=== PATIENT | male | born 1990 | race Hispanic/Latino ===

== ENCOUNTER 2017-09-22 10:41 | Emergency (ER) | payer BC, OTHER ==
[2017-09-22 11:03] LABS: BASOPHILS % (AUTO) 0.7 % (0.0-5.0); EOSINOPHILS % (AUTO) 2.5 % (0.0-8.0); HEMATOCRIT 44.7 % (42-54); MEAN CORPUSCULAR HEMOGLOBIN 29.8 pg (27.0-33.0); MEAN CORPUSCULAR HGB CONC 34.4 g/dL (32.0-36.0); MEAN CORPUSCULAR VOLUME 86.4 fL (79-99); MONOCYTES % (AUTO) 6.9 % (3.0-13.0); NEUTROPHILS % (AUTO) 69.9 % (40.0-77.0); PLATELET COUNT (AUTO) 318 K/uL (130-400); RED BLOOD CELL COUNT(AUTO) 5.18 MIL/uL (4.50-6.20); RED CELL DISTRIBUTION WIDTH 13.3 % (11.0-15.5)
[2017-09-22 11:11] LABS: CREATININE 0.8 mg/dL (0.5-1.5); POTASSIUM 3.8 mmol/L (3.5-5.1)
[2017-09-22 11:20] LABS: ALBUMIN 3.8 g/dL (3.5-5.0); BILIRUBIN,TOTAL 0.5 mg/dL (0.2-1.0); TOTAL PROTEIN, SERUM 7.4 g/dL (6.0-8.3)
[2017-09-22] MEDS ORDERED: PREDNISONE 20 MG TABLET ONE (11:51)
[2017-09-22] MEDS ORDERED: KETOROLAC TROMETHAMINE 30MG/ML ONE (11:52)
== END 2017-09-22 12:04 | disposition home or self-care (01) ==
LOC: EDH 10:41
DX: R07.89 Other chest pain (principal); I10 Essential (primary) hypertension; Z87.891 Personal history of nicotine dependence
CPT/HCPCS: 36415; 71045; 80053; 84484; 85025; 93005; 96374; 99285; J1885

== ENCOUNTER 2017-10-18 20:58 | Emergency (ER) | payer SELFPAY ==
[2017-10-18 21:47] LABS: BASOPHILS % (AUTO) 1.1 % (0.0-5.0); EOSINOPHILS % (AUTO) 2.7 % (0.0-8.0); HEMATOCRIT 44.5 % (42-54); LYMPHOCYTES % (AUTO) 20.2 % (21.0-51.0); MEAN CORPUSCULAR HEMOGLOBIN 29.2 pg (27.0-33.0); MEAN CORPUSCULAR HGB CONC 33.8 g/dL (32.0-36.0); MEAN CORPUSCULAR VOLUME 86.5 fL (79-99); MONOCYTES % (AUTO) 6.6 % (3.0-13.0); NEUTROPHILS % (AUTO) 69.4 % (40.0-77.0); NUCLEATED RED BLOOD CELLS 0.1 % (0.0-0.19); PLATELET COUNT (AUTO) 329 K/uL (130-400); RED BLOOD CELL COUNT(AUTO) 5.14 MIL/uL (4.50-6.20); RED CELL DISTRIBUTION WIDTH 13.1 % (11.0-15.5)
[2017-10-18 22:01] LABS: POTASSIUM 3.6 mmol/L (3.5-5.1)
[2017-10-18 22:06] LABS: ALBUMIN 3.8 g/dL (3.5-5.0); BILIRUBIN,TOTAL 0.5 mg/dL (0.2-1.0); TOTAL PROTEIN, SERUM 7.5 g/dL (6.0-8.3)
== END 2017-10-19 01:38 | disposition home or self-care (01) ==
LOC: EDH 20:58
DX: R42 Dizziness and giddiness (principal); R06.00 Dyspnea, unspecified; I10 Essential (primary) hypertension; F12.10 Cannabis abuse, uncomplicated; Z72.0 Tobacco use
CPT/HCPCS: 36415; 70450; 71250; 80053; 83880; 84484; 85025

== ENCOUNTER 2018-07-07 20:59 | Emergency (ER) | payer OTHER | END 2018-07-07 21:57 | disposition home or self-care (01) | LOC: EDH 20:59 | DX: S83.91XA Sprain of unspecified site of right knee, initial encounter (principal); I10 Essential (primary) hypertension; Z98.890 Other specified postprocedural states; Z72.0 Tobacco use; W06.XXXA Fall from bed, initial encounter; Y93.89 Activity, other specified; Y92.009 Unspecified place in unspecified non-institutional (private) residence as the place of occurrence of the external cause; Y99.8 Other external cause status | CPT/HCPCS: 73562 ==

== ENCOUNTER 2018-08-16 09:59 | Emergency (ER) | payer OTHER ==
[2018-08-16] MEDS ORDERED: SODIUM CHLORIDE 0.9% 1000ML 2,000 ML IV ONE (10:11)
[2018-08-16] MEDS ORDERED: ONDANSETRON HCL 4 MG/2 ML VIAL ONE (10:11)
[2018-08-16] MEDS ORDERED: HYOSCYAMINE SULFATE 0.125 MG TAB.SUBL SL ONE (10:11)
[2018-08-16 10:38] LABS: BASOPHILS % (AUTO) 0.4 % (0.0-5.0); HEMATOCRIT 47.4 % (42-54); LYMPHOCYTES % (AUTO) 15.6 % (21.0-51.0); MEAN CORPUSCULAR HEMOGLOBIN 29.1 pg (27.0-33.0); MEAN CORPUSCULAR HGB CONC 33.7 g/dL (32.0-36.0); MEAN CORPUSCULAR VOLUME 86.3 fL (79-99); MONOCYTES % (AUTO) 7.5 % (3.0-13.0); NEUTROPHILS % (AUTO) 74.5 % (40.0-77.0); NUCLEATED RED BLOOD CELLS 0.1 % (0.0-0.19); PLATELET COUNT (AUTO) 326 K/uL (130-400); RED CELL DISTRIBUTION WIDTH 13.3 % (11.0-15.5); WHITE BLOOD COUNT (AUTO) 12.2 K/uL (4.8-10.8)
[2018-08-16 10:43] LABS: AMYLASE 32 U/L (25-115); LIPASE 75 U/L (114-286)
[2018-08-16 10:44] LABS: POTASSIUM 3.4 mmol/L (3.5-5.1)
[2018-08-16 10:49] LABS: ALBUMIN 3.6 g/dL (3.5-5.0); BILIRUBIN,TOTAL 0.6 mg/dL (0.2-1.0); TOTAL PROTEIN, SERUM 7.3 g/dL (6.0-8.3)
[2018-08-16] MEDS ORDERED: CEFTRIAXONE SODIUM 1 GM ONE (11:40)
[2018-08-16] MEDS ORDERED: SODIUM CHLORIDE 0.9% 50 ML IV ONE (11:40)
== END 2018-08-16 12:30 | disposition home or self-care (01) ==
LOC: EDH 09:59
DX: K52.9 Noninfective gastroenteritis and colitis, unspecified (principal); E86.0 Dehydration; I10 Essential (primary) hypertension; Z98.890 Other specified postprocedural states
CPT/HCPCS: 36415; 80053; 82150; 83690; 85025; 87804 ×2; 96361; 96374; 96375; 99283; J0696; J2405; J7030

== ENCOUNTER 2020-01-20 18:11 | Emergency (ER) | payer OTHER ==
[2020-01-20] MEDS ORDERED: DICYCLOMINE HCL 10 MG/ML 2ML AMP IM ONE (19:27)
[2020-01-20] MEDS ORDERED: ONDANSETRON ODT 4 MG TAB ONE (19:27)
== END 2020-01-20 20:57 | disposition home or self-care (01) ==
LOC: EDH 18:11
DX: R11.10 Vomiting, unspecified (principal); R10.84 Generalized abdominal pain; I10 Essential (primary) hypertension; Z90.49 Acquired absence of other specified parts of digestive tract; Z72.0 Tobacco use
CPT/HCPCS: 36415; 80053; 83690; 85025; 96372; 99283; J0500

== ENCOUNTER 2022-11-22 13:58 | Emergency (ER) | payer BC, OTHER ==
[~2022-11-22] VITALS: Ht 172.7 cm; Wt 113.4 kg
[2022-11-22] MEDS ORDERED: ONDANSETRON 4MG INJ IVP ONE (15:00)
[2022-11-22] MEDS ORDERED: 0.9%NACL 1000ML 1,000 ML IV ONE ×2 (15:00→16:00)
[2022-11-22 15:04] LABS: ABG OXYGEN SATURATION 75.8 % (95.0-99.0); BASE EXCESS,VENOUS BLOOD GAS 0.2 (-2.0-3.0); HCO3,VENOUS BLOOD GAS 26.3 (21.0-28.0); PCO2,VENOUS BLOOD GAS 48 (35-48)
[2022-11-22 15:34] LABS: BASOPHILS % (AUTO) 0.7 % (0.0-5.0); EOSINOPHILS % (AUTO) 1.1 % (0.0-8.0); HEMATOCRIT 46.2 % (42-54); LYMPHOCYTES % (AUTO) 19.8 % (21.0-51.0); MEAN CORPUSCULAR HEMOGLOBIN 28.2 pg (27.0-33.0); MEAN CORPUSCULAR HGB CONC 33.5 g/dL (32.0-36.0); MONOCYTES % (AUTO) 7.1 % (3.0-13.0); NEUTROPHILS % (AUTO) 70.3 % (40.0-77.0); PLATELET COUNT (AUTO) 297 K/uL (130-400); RED CELL DISTRIBUTION WIDTH 12.3 % (11.0-15.5); WHITE BLOOD COUNT (AUTO) 10.6 K/uL (4.8-10.8)
[2022-11-22 15:45] LABS: CREATININE 0.9 mg/dL (0.5-1.5); POTASSIUM 3.4 mmol/L (3.5-5.1)
[2022-11-22 15:50] LABS: ALBUMIN 3.4 g/dL (3.5-5.0); TOTAL PROTEIN, SERUM 6.7 g/dL (6.0-8.3)
[2022-11-22 16:51] LABS: AMPHET/METH SCREEN,URINE NEGATIVE (NEGATIVE); BARBITURATE SCREEN, URINE NEGATIVE (NEGATIVE); BENZODIAZEPINES SCREEN,URINE NEGATIVE (NEGATIVE); CANNABINOID SCREEN,URINE POSITIVE (NEGATIVE); COCAINE SCREEN,URINE NEGATIVE (NEGATIVE); OPIATE SCREEN,URINE NEGATIVE (NEGATIVE); PHENCYCLIDINE SCREEN,URINE NEGATIVE (NEGATIVE)
[2022-11-22 16:57] LABS: APPEARANCE,URINE CLEAR (CLEAR); BILIRUBIN,URINE NEGATIVE (NEGATIVE); COLOR,URINE LIGHT-YELLOW (YELLOW); GLUCOSE, URINE (UA) >=1000 mg/dL (NEGATIVE); KETONES,URINE NEGATIVE (NEGATIVE); LEUKOCYTE ESTERASE ,URINE NEGATIVE Leu/uL (NEGATIVE); NITRATE,URINE NEGATIVE (NEGATIVE); OCCULT BLOOD,URINE NEGATIVE (NEGATIVE); PROTEIN,URINE 30 mg/dL (NEGATIVE); UROBILINOGEN,URINE 0.2 mg/dL (0.2-1.0)
[2022-11-22 17:02] LABS: MUCUS,URINE RARE LPF (None Seen)
[2022-11-22 17:10] VITALS: BP 114/66
== END 2022-11-22 18:14 | disposition home or self-care (01) ==
LOC: EDH 13:58
DX: E86.0 Dehydration (principal); R73.9 Hyperglycemia, unspecified; F12.10 Cannabis abuse, uncomplicated; Z20.822 Contact with and (suspected) exposure to COVID-19
CPT/HCPCS: 99284; 96374; 71045; 87635; 96361; 82947; 82435; 84484; 84132; 84295; 80053; 82803; 80305; 85025; 87880; 87804 ×2; 82948; 82010; 81001; 36415; 93005; 36600; 83605 ×3; C9803; J7030; J2405